=== PATIENT | female | born 1960 | race American Indian/Alaskan Native ===

== ENCOUNTER 2016-11-30 12:46 | Emergency (ER) | payer MEDICARE ==
--- NOTE | 2016-11-30 13:42 | Emergency Department Report ---
Chief Complaint: Fall Stated Complaint: FELL Time Seen by Provider: 11/30/16 13:36 - HPI History of Present Illness: PT states she was at the [place] this morning. PT was riding escalator and the person in front of her fell back and fell into her. PT states she fell backwards, hitting her head and neck. PT states she also injured her left knee - ROS Review of Systems: - loc + headache sp fall - Exam Physical Exam: PT is alert and appropriate in triage gcs 15 ambulatory with cane MSE screening note: Focused history and physical exam performed. Due to findings the following was ordered: ct, xr ED Disposition for MSE Condition: Stable
[2016-11-30] MEDS ORDERED: TYLENOL PO ONE (14:50)
--- NOTE | 2016-11-30 14:56 | Cat Scan Report ---
CT scan of cervical spine: History: Pain status post fall. Findings: The odontoid process and lateral mass appears intact. Anterior and posterior arch of atlas appears unremarkable. No evidence of acute fracture. Normal prevertebral soft tissue. Normal height of vertebral bodies. Decrease in height of C4-C5, C5-C6 and C6-C7 with severe cervical spondylosis. Impression: No evidence of acute fracture. Severe cervical spondylosis.
--- NOTE | 2016-11-30 15:00 | Cat Scan Report ---
CT scan of head without contrast: History: Pain status post fall. Findings: Ventricles are normal in size and midline in location. No evidence of acute ischemia, hemorrhage or mass. No extra axial fluid collection. Normal brainstem and cerebellum. Normal sinuses and mastoid air cells. Impression: No acute intracranial abnormality.
--- NOTE | 2016-11-30 15:21 | XRay Report ---
Lumbar spine: Trauma, pain AP and lateral views demonstrate a compression of the inferior L5 body with posterior and anterior bone spondylosis. There is sclerosis of the inferior L5 endplate and narrowing of the L5-S1 interspace. The alignment is intact throughout the lumbar spine and the remaining interspaces appear unremarkable. Impression: Chronic chronic appearing degenerative/trauma to changes at L5-S1. LEFT KNEE: Trauma, pain. The bony architecture is intact without evidence of fracture or dislocation. No significant soft tissue abnormality is seen. IMPRESSION: Normal left knee.
[2016-11-30] MEDS ORDERED: CATAPRES PO ONE (17:02)
[2016-11-30] MEDS ORDERED: CATAPRES ONE (17:02)
[2016-11-30 18:25] VITALS: BP 153/89
--- NOTE | 2016-11-30 18:26 | Emergency Department Report ---
Entered by BLANE BALLESTEROS, acting as scribe for TAN PINON NP. ED Fall HPI - General Chief Complaint: Fall Stated Complaint: FELL Time Seen by Provider: 11/30/16 13:36 Source: patient Mode of arrival: Ambulatory - History of Present Illness Initial Comments: This is a 56 y/o female, nontoxic, well nourished in appearance, no acute signs of distress with a PMHx of arthritis, lupus, PTSD and IBS presents with c/o a fall injury that began this morning at 05:10. Patient states she was on the escalator at [facility] this morning, a friend in front of her fell backwards onto her, and she subsequently fell backwards. In the ED, patient c/o low back pain, neck pain, bladder or bowel instability, headache, and left knee pain, but she denies LOC, fever, chills, chest pain, SOB, dizziness, vision changes, numbness, tingling. Rates pain an 8/10 in severity, which she describes as aching in quality. Patient states she hit her head and neck upon impact. Patient denies that her headache feels like a thunder-clap headache. Notes Hx of degenerative L4 and L5 discs. NKDA. 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 denies: numbness, weakness, chest paint, shortness of breath, abdominal pain, hematuria, unable to walk, lightheaded, vertigo, confusion - Related Data Previous Rx's Medication Instructions Recorded Last Taken Type Acetaminophen [Tylenol] 500 mg PO Q6HR #30 tablet 11/30/16 Unknown Rx Allergies Allergy/AdvReac Type Severity Reaction Status Date / Time No Known Allergies Allergy Verified 11/30/16 13:43 ED Review of Systems Comment: All other systems reviewed and negative Constitutional: denies: chills, fever Eyes: denies: eye pain, eye discharge, vision change ENT: denies: ear pain, throat pain Respiratory: denies: cough, orthopnea, shortness of breath, SOB with exertion, SOB at rest, stridor, wheezing Cardiovascular: denies: chest pain, palpitations, dyspnea on exertion, orthopnea , edema, syncope, paroxysmal nocturnal dyspnea Endocrine: no symptoms reported Gastrointestinal: denies: abdominal pain, nausea, vomiting, diarrhea Genitourinary: denies: urgency, dysuria, discharge Musculoskeletal: back pain (lumber), arthralgia (left knee pain and neck pain). denies: joint swelling Skin: denies: rash, lesions Neurological: headache. denies: weakness, numbness, paresthesias, abnormal gait , vertigo Psychiatric: denies: anxiety, depression Hematological/Lymphatic: denies: easy bleeding, easy bruising ED Past Medical Hx - Past Medical History Hx Arthritis: Yes Additional medical history: lupus, ptsd,ibs - Surgical History Past Surgical History?: Yes Hx Cholecystectomy: Yes Additional Surgical History: tubal, tonsil, feet - Social History Smoking Status: Current Every Day Smoker Substance Use Type: Alcohol - Medications Home Medications: Home Medications Medication Instructions Recorded Confirmed Last Taken Type Acetaminophen [Tylenol] 500 mg PO Q6HR #30 tablet 11/30/16 Unknown Rx ED Physical Exam - General Limitations: No Limitations General appearance: alert, in no apparent distress - Head Head exam: Present: atraumatic, normocephalic - Expanded Head Exam Expanded Head exam: Absent: laceration, abrasion, contusion, hematoma, racoon eyes, rajan's sign, general tenderness, tenderness of temporal artery, CSF rhinorrhea , CSF otorrhea - Eye Eye exam: Present: normal appearance, PERRL, EOMI. Absent: scleral icterus, conjunctival injection, nystagmus, periorbital swelling Pupils: Present: normal accommodation - ENT ENT exam: Present: normal exam, normal orophraynx, mucous membranes moist, TM's normal bilaterally, normal external ear exam - Neck Neck exam: Present: normal inspection, tenderness (C-spine tenderness), full ROM. Absent: meningismus, lymphadenopathy, thyromegaly - Expanded Neck Exam Expanded Neck exam: Present: tenderness (C-spine tenderness). Absent: midline deformity , anterior neck swelling, thyroid mass, carotid bruit, tracheal deviation - Respiratory Respiratory exam: Present: normal lung sounds bilaterally. Absent: respiratory distress, wheezes, rales, rhonchi, stridor, chest wall tenderness, accessory muscle use, decreased breath sounds - Cardiovascular Cardiovascular Exam: Present: regular rate, normal rhythm, normal heart sounds. Absent: systolic murmur, diastolic murmur, rubs, gallop - GI/Abdominal GI/Abdominal exam: Present: soft, normal bowel sounds. Absent: distended, tenderness, guarding, rebound, rigid - Extremities Exam Extremities exam: Present: full ROM, tenderness (mild left knee tenderness), normal capillary refill. Absent: pedal edema, joint swelling, calf tenderness - Expanded Lower Extremity Exam Left Hip exam: Present: normal inspection, full ROM, external rotation, internal rotation, pelvic stability. Absent: tenderness, swelling, abrasion, laceration , ecchymosis, deformity, crepidus, dislocation, erythema, shortening Upper Leg exam: Present: normal inspection, full ROM. Absent: tenderness, swelling, abrasion, laceration, ecchymosis, deformity, crepidus, dislocation, erythema Knee exam: Present: full ROM, tenderness (mild left knee), full knee extension. Absent: swelling, abrasion, laceration, ecchymosis, deformity, crepidus, dislocation, erythema, effusion, pain w/ pronation/supination, posterior draw sign, pain/laxity with valgus, pain/laxity with varus Lower Leg exam: Present: normal inspection, full ROM. Absent: tenderness, swelling, abrasion, laceration, ecchymosis, deformity, crepidus, dislocation, erythema, palpable cord, Nicholas's sign Ankle exam: Present: normal inspection, full ROM Foot/Toe exam: Present: normal inspection, full ROM Neuro vascular tendon exam: Present: no vascular compromise. Absent: pulse deficit, abnormal cap refill, motor deficit, sensory deficit, tendon deficit, extremity cold to touch, pallor, abnormal 2-point discrimination, decreased fine /light touch, foot drop, peroneal nerve deficit, significant pain with passive ROM of distal joint Gait: Positive: observed and limited by pain (patient is ambulatory with a cane) - Back Exam Back exam: Present: normal inspection, full ROM, tenderness (C-spine and L-spine ), vertebral tenderness (C-spine and L-spine). Absent: CVA tenderness (R), CVA tenderness (L), muscle spasm, paraspinal tenderness - Expanded Back Exam Expanded Back exam: Present: normal rectal tone. Absent: saddle anesthesia Back exam: Negative Straight Leg Raising: Left, Right - Neurological Exam Neurological exam: Present: alert, oriented X3, CN II-XII intact, normal gait ( limited due to left knee pain, patient is ambulatory using a cane), reflexes normal. Absent: motor sensory deficit - Expanded Neurological Exam Expanded Patient oriented to: Present: person, place, time Speech: Present: fluid speech Cranial nerves: EOM's Intact: Normal, Gag Reflex: Normal, Tongue Deviation: Normal, Nystagmus: Normal, Facial Sensation: Normal, Facial Palsy with Forehead Movement: Normal, Facial Palsy without Forehead Movement: Normal Cerebellar function: Finger to Nose: Normal, Heel to [place]: Normal, Romberg: Normal Upper motor neuron: Jaison Neglect: Normal, Pronator Drift: Normal, Babinski Sign : Normal, Sensory Extinction: Normal Sensory exam: Upper Extremity Light Touch: Normal, Upper Extremity Pin Prick: Normal, Upper Extremity Temperature: Normal, UE 2 Point Discrimination: Normal, Lower Extremity Light Touch: Normal, Lower Extremity Pin Prick: Normal, Lower Extremity Temperature: Normal, LE 2 Point Discrimination: Normal Motor strength exam: RUE: 5, LUE: 5, RLE: 5, LLE: 5 DTR: bicep (R): 2+, bicep (L): 2+, tricep (R): 2+, tricep (L): 2+, knee (R): 2+ , knee (L): 2+, ankle (R): 2+, ankle (L): 2+ Best Eye Response ([place]): (4) open spontaneously Best Motor Response ([place]): (6) obeys commands Best Verbal Response ([place]): (5) oriented [place] Total: 15 - Psychiatric Psychiatric exam: Present: normal affect, normal mood - Skin Skin exam: Present: warm, dry, intact. Absent: rash ED Course Vital Signs 11/30/16 11/30/16 13:34 17:09 Temperature 97.8 F Pulse Rate 79 58 L Respiratory 16 Rate Blood Pressure 192/106 199/104 O2 Sat by Pulse 98 Oximetry - Reevaluation(s) Reevaluation #1: 11/30/16 15:34 Patient is speaking full sentences with no signs of distress. ED Medical Decision Making - Medical Decision Making ED course; this is a 56-year-old female that presents with low back strain, cervical strain, and contusion to the left knee 1- patient was examined myself. Patient received x-rays of left knee and an lumbar with normal findings and no fractures noted. CT scan has been obtained of the head/brain without contrast as well as cervical region with negative findings of any fractures or abnormalities. 2- patient was treated with acetaminophen at discharge. 3- patient was instructed to follow-up with her primary care doctor in 3-5 days or if symptoms worsen or continue return to emergency room as soon as possible. 4- At time time of discharge, the patient does not seem toxic or ill in appearance. No acute signs of distress noted. Patient agrees to discharge treatment plan of care. No further questions noted by the patient. ED Disposition Clinical Impression: Contusion Qualifiers: Encounter type: initial encounter Contusion area: shoulder Laterality: unspecified laterality Qualified Code(s): S40.019A - Contusion of unspecified shoulder, initial encounter Low back strain Qualifiers: Encounter type: initial encounter Qualified Code(s): S39.012A - Strain of muscle, fascia and tendon of lower back, initial encounter Cervical strain Qualifiers: Encounter type: initial encounter Qualified Code(s): S16.1XXA - Strain of muscle, fascia and tendon at neck level, initial encounter Hypertension Qualifiers: Hypertension type: unspecified Qualified Code(s): I10 - Essential (primary) hypertension Disposition: - TO HOME OR SELFCARE Is pt being admited?: No Does the pt Need Aspirin: No Condition: Stable Instructions: Acetaminophen (By mouth), Cervical Spine Strain (ED), Low Back Strain (ED), Contusion in Adults (ED), Knee Pain (ED), Hypertension (ED) Additional Instructions: follow-up with your primary care doctor in 3-5 days or if symptoms worsen or continue return to emergency room as soon as possible. Follow-up with your primary care doctor in 24 hours for your high blood pressure Prescriptions: Acetaminophen [Tylenol] 500 mg PO Q6HR #30 tablet Referrals: CHANDU BOND MD [Primary Care Provider] - 3-5 Days JUNE MCGILL MD [Staff Physician] - 3-5 Days [facility] [Outside] - 3-5 Days [facility] [Outside] - 3-5 Days Forms: Work/School Release Form(ED) This documentation as recorded by the LESLI alnders JASMINE,accurately reflects the service I personally performed and the decisions made by me,TAN PINON, IT DIRECTOR.
== END 2016-11-30 18:31 | disposition home or self-care (01) ==
LOC: ED 12:46
DX: S39.012A Strain of muscle, fascia and tendon of lower back, initial encounter (principal); S16.1XXA Strain of muscle, fascia and tendon at neck level, initial encounter; S40.019A Contusion of unspecified shoulder, initial encounter; I10 Essential (primary) hypertension; M19.90 Unspecified osteoarthritis, unspecified site; F17.200 Nicotine dependence, unspecified, uncomplicated; F43.10 Post-traumatic stress disorder, unspecified; W10.0XXA Fall (on)(from) escalator, initial encounter; Y93.89 Activity, other specified; Y99.8 Other external cause status; Y92.520 Airport as the place of occurrence of the external cause
CPT/HCPCS: 70450; 72100; 72125